=== PATIENT | female | born 1950 | race Caucasian/White ===

== ENCOUNTER → 2016-12-22 | Outpatient (CLI) | payer BC ==
[~2016-12-22] MED LIST: ASPIRIN EC81 M1; AUGMENTIN 875875 M1 PO; CELEXA20 MG PO; CITALOPRAM; LOSARTAN-HCTZ1 EACH; LOVAZA1000 MG PO; OMEPRAZOLE 20 M20 M1 PO; PREDNISONE 20 M20 M1 PO; PROVENTIL HFA6.7 G1 INH; TYLENOL EX-STR500 M2 PO
== END ==
LOC: MRI 09:08
DX: R90.82 White matter disease, unspecified (principal); R25.1 Tremor, unspecified; R25.3 Fasciculation

== ENCOUNTER 2017-06-04 10:42 | Emergency (ER) | payer BC ==
[~2017-06-04] VITALS: Ht 162.6 cm; Wt 90.7 kg
[2017-06-04] MEDS ORDERED: ASPIRIN81 M2 PO (11:03)
[2017-06-04] MEDS ORDERED: HYDROCODONE-AP1 EAC6 PO (12:03)
[2017-06-04] MEDS ORDERED: IBUPROFEN 600600 M1 PO (12:03)
[2017-06-04 12:33] VITALS: BP 132/71
== END 2017-06-04 12:34 | disposition home or self-care (01) ==
LOC: ER 10:42
DX: S80.01XA Contusion of right knee, initial encounter (principal); I10 Essential (primary) hypertension; Z86.2 Personal history of diseases of the blood and blood-forming organs and certain disorders involving the immune mechanism; Z88.8 Allergy status to other drugs, medicaments and biological substances; W01.198A Fall on same level from slipping, tripping and stumbling with subsequent striking against other object, initial encounter; Y93.89 Activity, other specified; Y92.89 Other specified places as the place of occurrence of the external cause; Y99.8 Other external cause status

== ENCOUNTER 2017-06-16 16:09 | Emergency (ER) | payer BC ==
[~2017-06-16] VITALS: Ht 162.6 cm; Wt 90.7 kg
[~2017-06-16 16:09] MED LIST changes: +ASPIRIN81 M2 PO; +HYDROCODONE-AP1 EAC6 PO; +IBUPROFEN 600600 M1 PO
[2017-06-16 17:25] LABS: ABSOLUTE NEUTROPHILS 6.9 thou/uL (1.4-8.2); BASOPHILS 0.8 % (0.0-2.0); EOSINOPHILS 2.9 % (0.0-3.0); HEMATOCRIT 37.7 % (37.0-47.0); HEMOGLOBIN 12.8 gm/dL (12.0-15.0); LYMPHOCYTES 25.4 % (24.0-44.0); MCH 29.3 pg (26.0-34.0); MCHC 34.1 g/dL (28.0-37.0); MONOCYTES 7.2 % (1.0-8.0); PLATELET COUNT 358 thou/uL (150-400); POLYS 63.7 % (36.0-66.0); RBC 4.38 mil/uL (4.20-5.00); RDW 13.9 % (10.5-14.5); WBC 10.8 thou/uL (4.0-11.0)
[2017-06-16 17:38] LABS: CALCIUM 8.8 mg/dL (8.5-10.1); CREATININE 1.1 mg/dL (0.6-1.0); POTASSIUM 3.4 mmol/L (3.5-5.1)
[2017-06-16 17:56] LABS: ALBUMIN 3.4 g/dL (3.4-5.0); TOTAL BILIRUBIN 0.5 mg/dL (<0.1-1.0); TOTAL PROTEIN 7.3 g/dL (6.4-8.2)
[2017-06-16] MEDS ORDERED: BACTRIM DS TAB1 EACH PO (19:02)
[2017-06-16 19:44] VITALS: BP 146/84
== END 2017-06-16 19:26 | disposition home or self-care (01) ==
LOC: ER 16:09
PROVIDERS: Nurse Practitioner
DX: L03.115 Cellulitis of right lower limb (principal); S80.01XA Contusion of right knee, initial encounter; I10 Essential (primary) hypertension; Z86.2 Personal history of diseases of the blood and blood-forming organs and certain disorders involving the immune mechanism; Z88.8 Allergy status to other drugs, medicaments and biological substances; W01.0XXA Fall on same level from slipping, tripping and stumbling without subsequent striking against object, initial encounter; Y93.89 Activity, other specified; Y92.89 Other specified places as the place of occurrence of the external cause; Y99.8 Other external cause status